=== PATIENT | female | born 1945 | race Caucasian/White ===

== ENCOUNTER 2024-01-12 19:49 | Emergency (ER) | payer OTHER ==
[~2024-01-12] VITALS: Ht 147.3 cm; Wt 64.0 kg
[2024-01-12 20:00] VITALS: BP_SYST 180; PULSE 79; RESP 16; TEMP 98.1; O2SAT 95
== END 2024-01-12 20:51 | disposition left against medical advice (07) ==
LOC: SED 19:49
DX: R04.0 Epistaxis (principal); Z53.21 Procedure and treatment not carried out due to patient leaving prior to being seen by health care provider
CPT/HCPCS: 99281